=== PATIENT | female | born 1955 | race Caucasian/White ===

== ENCOUNTER 2017-01-10 12:42 | Emergency (ER) | payer OTHER ==
[2017-01-10 13:02] VITALS: BP 171/87
--- NOTE | 2017-01-10 13:08 | ERNOTE ---
ER Female HPI Date of Service: 01/10/17 Stated Complaint: UTI Presenting Symptoms: dysuria Time Seen by Provider: 01/10/17 13:05 Source: patient, RN notes reviewed Exam Limitations: no limitations Immunizations: IMMUNIZATION HX Immunizations Up to Date unknown if Tdap is UTD History of Influenza Vaccine Yes Hx Pneumococcal Vaccination Yes Allergies/Adverse Reactions: Allergies adhesive Adverse Reaction (Mild, Verified 01/10/17 13:03) RASH albuterol Adverse Reaction (Mild, Verified 01/10/17 13:03) RAPID HEART RATE bupropion HCl [From Wellbutrin] Adverse Reaction (Mild, Verified 01/10/17 13:03) "FUNNY FEELING" duloxetine HCl [From Cymbalta] Adverse Reaction (Mild, Verified 01/10/17 13:03) "FUNNY FEELING" erythromycin base [Erythromycin Base] Adverse Reaction (Mild, Verified 01/10/17 13:03) GI UPSET, NAUSEA Penicillins Adverse Reaction (Mild, Verified 01/10/17 13:03) RASH venlafaxine HCl [From Effexor] Adverse Reaction (Mild, Verified 01/10/17 13:03) "FUNNY FEELING" Home Medications: HOME MEDICATIONS FLUoxetine HCL [Prozac] 30 mg PO DAILY 01/27/14 [Last Taken Unknown] Hydrochlorothiazide 12.5 mg PO DAILY 01/27/14 [Last Taken Unknown] Pramipexole Di-HCl [Mirapex] 0.125 mg PO HS 01/27/14 [Last Taken Unknown] Cholecalciferol (Vitamin D3) [Vitamin D3] 2,000 unit PO DAILY 05/01/14 [Last Taken Unknown] Dexlansoprazole [Dexilant] 60 mg PO DAILY 05/01/14 [Last Taken Unknown] Hydrocodone/Acetaminophen [Hydrocodon-Acetaminophn 10-325] 1 each PO Q4H PRN [Last Taken Unknown] Levothyroxine Sodium [Synthroid] 75 mcg PO DAILY 05/01/14 [Last Taken Unknown] Lorazepam [Ativan] 1 mg PO BID PRN 05/01/14 [Last Taken Unknown] Milnacipran HCl [Savella] 50 mg PO BID 05/01/14 [Last Taken Unknown] Multivitamins [Multivitamin Nathanael] 1 cap PO DAILY 05/01/14 [Last Taken Unknown] Potassium Chloride [Klor-Con 10] 10 meq PO DAILY 05/01/14 [Last Taken Unknown] Pregabalin [Lyrica] 75 mg PO BID 08/26/15 [Last Taken Unknown] Promethazine HCl [Phenergan (Promethazine)] 25 mg PO QID #20 tab 04/19/16 [Last Taken Unknown] Phenazopyridine HCl 200 mg PO Q8H PRN #6 tablet 01/10/17 [Last Taken Unknown] Sulfamethoxazole/Trimethoprim [Bactrim Ds] 1 tab PO BID #14 tab 01/10/17 [Last Taken Unknown] - History of Present Illness Narrative: 61 y/o female ambulatory to the ED for dysuria and urinary frequency that began this morning. She has not had any recent urinary tract infections. She denies fever, chills, nausea and vomiting. She has not taken anything for the symptoms. Date (Duration): 01/10/17 Prior Abdominal Problems: Present: similar symptoms Prior Treatment: Absent: recently seen, currently on antibiotics Review of Systems - Review of Systems Constitutional: Absent: fever, chills, malaise EYE: Present: no symptoms reported ENT: Present: no symptoms reported Respiratory: Present: no symptoms reported Cardiology: Present: no symptoms reported Gastrointestinal/Abdominal: Absent: nausea, vomiting, abdominal pain Genitourinary: Present: frequency, dysuria. Absent: hematuria Musculoskeletal: Absent: back pain, muscle pain Skin: Present: no symptoms reported Neurological: Absent: headache, dizziness/light-headedness Endocrine: Present: no symptoms reported Hematologic/Lymphatic: Present: no symptoms reported Psych: Present: no symptoms reported - Patient's Past Medical History Patient History - Medical: Anemia, Anxiety, Chronic Pain, Depression, Fibromyalgia, GERD, Hypothyroidism Patient History - Cardiac/Respiratory: No pertinent hx Patient History - Cancer: No Hx of Cancer Patient History - Surgical Procedures: Colonoscopy, , EGD, Other Patient History - Other: None LMP (females 10-50): Menopausal - Social History Living Situations: home Abuse History: No History of abuse Psych History: No pertinent hx Smoking Status: Never smoker Alcohol Use: rarely Drug Use: none - Immunizations Immunizations Up to Date: - unknown if Tdap is UTD Hx Pneumococcal Vaccination: Yes History of Influenza Vaccine: Yes Physical Exam - Physical Exam General Appearance: Present: wd/wn, alert, no apparent distress Neck: Present: normal inspection, nontender, supple Respiratory: Present: no respiratory distress, normal breath sounds, no accessory muscle use, lungs clear Cardiovascular/Chest: Present: regular rate, rhythm, no murmur Back Exam: Present: normal inspection, no CVA tenderness Neurological Exam: Present: alert, oriented, normal mood/affect Skin Exam: Present: normal color, warm/dry ED Progress - Results and Orders Patient's Lab Results:: I have reviewed the patient's lab results. - Vital Signs Patient's Vital Signs:: I have reviewed the patient's vital signs. Vital Signs: Vital Signs 01/10/17 12:58 Temperature 36.5 C Pulse Rate 88 Respiratory 16 Rate Blood Pressure 171/87 O2 Sat by Pulse 99 Oximetry - Progress/Reassessment Chief Complaint: Genitourinary Problem Progress:: Unchanged Departure Clinical Impression: Urinary tract infection in female - Departure Disposition: Home self-care Condition: Good Instructions: Urinary Tract Infection, Adult, [id number] Referrals: Scott Ellis MD [Primary Care Provider] - Prescriptions: Phenazopyridine HCl 200 mg PO Q8H PRN #6 tablet PRN Reason: Pain Sulfamethoxazole/Trimethoprim [Bactrim Ds] 1 tab PO BID #14 tab
[2017-01-10 13:35] LABS: Urine Appearance Slightly Cloudy; Urine Bilirubin Negative (NEGATIVE); Urine Blood 50 /ul (NEGATIVE); Urine Color Yellow; Urine Ketone Negative (NEGATIVE); Urine Nitrite Positive (NEGATIVE); Urine Protein Negative (NEGATIVE); Urine Specific Gravity 1.025 SP.GR. (1.005-1.010); Urine Urobilinogen Normal (NORMAL)
[2017-01-10 13:36] LABS: Urine Bacteria 1+; Urine WBC >50 /hpf (0-5)
[2017-01-10] MEDS ORDERED: PHENAZOPYRIDINE HCL 100 MG TABLET PO ONE (13:56)
[2017-01-10] MEDS ORDERED: SULFAMETHOXAZOLE/TRIMETHOPRIM 1 TAB TABLET PO ONE (13:56)
[2017-01-10] MEDS ORDERED: PHENAZOPYRIDINE HCL 100 MG TABLET ONE (14:00)
[2017-01-10] MEDS ORDERED: SULFAMETHOXAZOLE/TRIMETHOPRIM 1 TAB TABLET ONE (14:00)
--- OUTSIDE RECORDS SUMMARY | 2017-01-10 14:08 | XMS REPORT | Continuity of Care Document ---
:1955 Author Organization [facility] ([facility]) Address [address] [place] [address] Phone [phone] Care Team Providers Name Role Phone Soctt Ellis Primary Care Provider [phone] Source Comments This disclosure is being made pursuant to the Care Everywhere program, applicable federal and state laws, and may not contain all informaitonavailable regarding this patient.[facility] ([facility]) Active Allergies and Adverse Reactions Allergen Noted Date Severity Reactions Comments Erythromycin 11/28/2009 Nausea & Vomiting Penicillins 11/28/2009 Nausea & Vomiting Current Medications Prescription Sig. Disp. Refills Start Date End Date Status IRON POLYSACCHARIDES take 150 mg by Active COMPLEX (POLY-IRON PO) mouth 2 times daily. FLUoxetine (PROZAC) 20 mg Take 30 mg by mouth Active capsule daily. pramipexole (MIRAPEX) 0.5 Take 0.5 mg by Active mg tablet mouth daily. LEVOTHYROXINE SODIUM Take 75 mg by mouth Active (LEVOTHROID PO) daily. MULTIVITAMINS take by mouth Active (MULTI-VITAMIN PO) daily. HYDROcodone-acetaminophen Take 2 Tabs by Active 7.5-500 mg per tablet mouth 2 times daily. omeprazole 20 mg extended Take 20 mg by mouth Active release capsule daily. Milnacipran (SAVELLA) 50 Take 50 mg by mouth Active mg Tab 2 times daily. hydrochlorothiazide 12.5 Take 12.5 mg by Active mg tablet mouth daily. potassium chloride 10 mEq Take 10 mEq by Active XR tablet mouth daily. nabumetone (RELAFEN) 750 Take 1 Tab by mouth 60 Tab 6 05/25/2011 Active mg tablet 2 times daily as needed. Indications: Osteoarthritis Active Problems Problem Noted Date Seasonal allergic rhinitis 05/25/2011 Anemia 05/25/2011 Overview: Not resolved with iron replacement? Pain in joint, hands 05/25/2011 Restless legs 05/25/2011 Asthma 05/24/2011 Overview: Mild as adult. Depression 05/24/2011 Overview: Stable on medication Hypothyroidism 05/24/2011 Overview: On replacement since ~2005 Osteoarthritis 05/24/2011 Social History Tobacco Use Types Packs/Day Years Used Date Never Smoker Smokeless Tobacco: Never Used Alcohol Use Drinks/Week oz/Week Comments No Last Filed Vital Signs Vital Sign Reading Time Taken Blood Pressure 145/90 05/25/2011 8:56 AM CDT Pulse 81 05/25/2011 8:56 AM CDT Temperature 36.9 C (98.4 F) 11/28/2009 9:48 AM [employer] Respiratory Rate - - Height 1.625 m (5' 3.98") 05/25/2011 8:56 AM CDT Weight 120.3 kg (265 lb 3.4 oz) 05/25/2011 8:56 AM CDT Body Mass Index 45.56 05/25/2011 8:56 AM CDT Oxygen Saturation - - Plan of Care Health Maintenance Due Date Last Done Comments HCV Screening 1955 Hepatitis B Vaccine (1 of 3 - Primary Series) 1955 Tdap Vaccine 1968 Lipid Disorder Screening 1975 MMR Vaccine 1975 Td Vaccine 1975 Pneumococcal Vaccine (1 of 1 - PPSV23) 1976 Cervical Cancer Screening 1987 Mammogram 1997 Colonoscopy 2007 Influenza Vaccine: Seasonal (#1) 06/15/2016 Results from Last 3 Months Not on file
== END 2017-01-10 14:08 | disposition home or self-care (01) ==
LOC: ER 12:42
DX: N39.0 Urinary tract infection, site not specified (principal)

== ENCOUNTER 2018-02-04 06:59 | Day surgery (SDC) | payer MEDICAID ==
[~2018-02-04 06:59] MED LIST: RINGER'S SOLUTION,LACTATED 1,000 ML IV PRN
[2018-02-04] MEDS ORDERED: RINGER'S SOLUTION,LACTATED 1,000 ML IV ONE (07:30)
[2018-02-04] MEDS ORDERED: METOCLOPRAMIDE HCL 5 MG/ML VIAL IV ONE (08:10)
[2018-02-04] MEDS ORDERED: RINGER'S SOLUTION,LACTATED 1,000 ML IV PRN (08:10)
[2018-02-04 10:01] VITALS: BP 116/68
--- NOTE | 2018-02-04 16:24 | OR ---
Operative Report - Dictated Report Narrative: Operative Report Date of operation: 02/04/2018 Preoperative diagnosis: Epigastric pain. Dysphagia Postoperative diagnosis: Hiatal hernia. Gastroparesis with retained food ( CLOtest pending) Operation: EGD with biopsy Surgeon: Dr Faye Anesthesia: BIBI CHURCH CRNA Indications for procedure: The patient is a 62-year-old female referred by Dr. Ellis. She has a one-year history of vomiting dysphagia and constipation. She has had a past EGD which revealed severe chemical gastropathy. Recent upper GI series shows hiatal/paraesophageal hernia with retained debris and slow intestinal transit. Findings: Moderate sized sliding hiatal hernia. Large amount of retained solid food (patient reports from 2 days ago). Relatively normal gastric mucosa (CLOtest pending). Inability to examine the duodenum due to the retained food. Narrative of procedure: The patient was identified preoperatively, and prior to the administration of anesthetic a multidisciplinary timeout was observed With the patient in the recumbent position, a bite-block was placed, intravenous sedation administered, and the patient's eyes covered with a towel. The flexible fiberoptic gastroscope was advanced into the posterior pharynx which appeared normal. There was crowding of the structures which was relieved with jaw thrust maneuver. The supraglottic larynx appeared normal. The cords appeared normal, moved well, and opposed in the midline. The scope was advanced under direct vision into the proximal esophagus which appeared normal. The esophagus appeared freely distensible with normal mucosa. The esophageal mucosa appeared normal down to the gastroesophageal junction which was sharp and noninflamed. The GE junction appeared normally distensible. There was a moderate size sliding hiatal hernia. The scope was advanced into the stomach proper which was insufflated with air. Immediately apparent was a large amount of liquid and solid food debris including corn and peas, that the patient later stated were eaten 2 days prior to the procedure. This was carefully suctioned to avoid over distention and vomiting. Despite repositioning of the patient to expose the antrum and distal stomach, the scope could not be successfully advanced through the pylorus. As the scope was advanced along the greater curvature the patient became nauseated, and despite several attempts the pylorus was not directly visualized and the duodenum could not be entered. A office machines sales representative biopsy of gastric mucosa was obtained for CLOtest. The biopsy site was seen to be hemostatic. The insufflated air was removed from the stomach, the scope withdrawn from the patient, and the procedure terminated. The patient tolerated the anesthetic and procedure well without complication and was transferred back to the ambulatory surgery area awake and in stable condition. The patient remained stable throughout a period of postoperative observation, was able to tolerate po intake, and was up without assistance. I shared the operative findings with her, and she was given copies of the photographs which appear in the medical record. She was discharged home with instructions not to engage in hazardous activity today, but may return to normal activity tomorrow and advance diet as tolerated. She is to continue medications as listed in the history and physical exam. I made arrangements to contact the patient with the biopsy report and will make further recommendation based upon that result. Reviewed and electronically signed
== END 2018-02-04 07:00 | disposition home or self-care (01) ==
LOC: AMB 06:59
PROVIDERS: ATTEND Surgery
PROC: 0DB68ZX Excision of Stomach, Via Natural or Artificial Opening Endoscopic, Diagnostic (ICD-10-PCS; principal; 2018-02-04)
DX: K31.84 Gastroparesis (principal); K44.9 Diaphragmatic hernia without obstruction or gangrene; K21.9 Gastro-esophageal reflux disease without esophagitis; E03.9 Hypothyroidism, unspecified; M79.7 Fibromyalgia; F32.9 Major depressive disorder, single episode, unspecified; D50.9 Iron deficiency anemia, unspecified; M19.90 Unspecified osteoarthritis, unspecified site; Z68.36 Body mass index [BMI] 36.0-36.9, adult